=== PATIENT | male | born 1935 | race African-American/Black ===

== ENCOUNTER 2023-06-11 03:03 | Inpatient (IN) | payer OTHER ==
[~2023-06-11] VITALS: Ht 175.3 cm; Wt 89.3 kg
[2023-06-11] VITALS (8 sets, daily range): BP systolic 122–150; BP diastolic 69–85; PULSE 89–107; RESP 18–22; TEMP 97.6–98.5; O2SAT 95–98
[2023-06-11] MEDS ORDERED: HYDROcodone-ACET 5/325MG TAB PO PRN (03:15)
[2023-06-11] MEDS ORDERED: ACETAMINOPHEN 325 MG TAB PO PRN (03:15)
[2023-06-11] MEDS: FINASTERIDE 5 MG TAB PO SCH ×2 (03:45→10:00)
[2023-06-11] MEDS ORDERED: BRIM0.2S17 EACHEYE (04:12)
[2023-06-11] MEDS ORDERED: DORZ2SOL18 (04:12)
[2023-06-11] MEDS ORDERED: CLOP75TA70 PO (04:12)
[2023-06-11] MEDS ORDERED: SENN-177 PO (04:12)
[2023-06-11] MEDS ORDERED: TAMS0.4C36 PO (04:12)
[2023-06-11] MEDS ORDERED: DOCU-94 PO (04:12)
[2023-06-11] MEDS ORDERED: HYDR-4072 PO (04:12)
[2023-06-11] MEDS ORDERED: FUROSEMIDE 20 MG/2 ML VIAL IV SCH (06:00)
[2023-06-11 06:10] LABS: Basophils # (auto) 0 10 ^3/uL (0-0.2); Basophils % (auto) 0.1 % (0.0-2.0); Eosinophils # (auto) 0 10 ^3/uL (0-0.8); Hematocrit 46.9 % (41.0-53.0); Hemoglobin 15.6 g/dL (13.5-17.5); Lymphocytes # (auto) 0.2 10 ^3/uL (0.4-5.4); Lymphocytes % (auto) 1.1 % (10.0-50.0); Mean Corpuscular Hemoglobin 33.2 pg (28.0-32.0); Mean Corpuscular Hgb Conc. 33.3 g/dL (32.0-36.0); Mean Corpuscular Volume 99.6 fL (80.0-100.0); Monocytes # (auto) 2.2 10 ^3/uL (0-1.3); Monocytes % (auto) 14.7 % (0.0-12.0); Neutrophils # (auto) 12.7 10 ^3/uL (1.6-8.6); Neutrophils % (auto) 84.1 % (37.0-80.0); Nucleated Red Blood Cells % 0.1 %; Red Cell Distribution Width 13.4 % (11.8-14.3); White Blood Cell 15.1 10^3/uL (4.4-10.8)
[2023-06-11 06:22] LABS: Alkaline Phosphatase 68 U/L (46-116); Anion Gap 12 (5-15); Aspartate Aminotransferase 14 U/L (13-40); BUN/Creatinine Ratio 10.7 (10.0-20.0); Bilirubin, Total 0.8 mg/dL (0.2-1.0); Blood Urea Nitrogen 68 mg/dL (9-23); Calcium 8.3 mg/dL (8.7-10.4); Carbon Dioxide 25 mmol/L (20-30); Chloride 101 mmol/L (98-107); Glucose 102 mg/dL (74-106); Potassium 4.4 mmol/L (3.5-5.1); Sodium 138 mmol/L (136-145); Total Protein 6.8 g/dL (5.7-8.2)
[2023-06-11 06:34] LABS: Alanine Aminotransferase < 9 U/L (7-40)
[2023-06-11] MEDS ORDERED: LIDOCAINE 2% JELLY 11ml (GLYDO) UR ONE (08:00)
[2023-06-11] MEDS ORDERED: FUROSEMIDE 20 MG/2 ML VIAL ONE (08:17)
[2023-06-11] MEDS: SODIUM CHLOR 0.9% PF (SALINE LOCK) 10ML VIAL/SYR IV SCH ×3 (08:20→22:00)
[2023-06-11] MEDS ORDERED: LIDOCAINE 1% HCL (LOCAL ANESTH.) INJ 20ML MDV IJ ONE (09:45)
[2023-06-11 10:53] LABS: Urine Bacteria NONE SEEN /hpf (None Seen); Urine Blood 3+ /uL (Negative); Urine Clarity HAZY (Clear); Urine Color PINK (Yellow); Urine Protein, UAD 2+ (Negative); Urine Specific Gravity 1.017 (1.001-1.035); Urine Urobilinogen Normal (Negative); Urine WBC 57 /hpf (0 - 3); Urine pH 5.5 (5.0-8.0)
[2023-06-11] MEDS ORDERED: FINASTERIDE 5 MG TAB ONE (11:14)
[2023-06-11 15:42] LABS: Triglycerides 89 mg/dL (< 150)
[2023-06-11 15:43] LABS: LDL Cholesterol 73 mg/dL (< 100)
[2023-06-11 15:44] LABS: Cholesterol 155 mg/dL (< 200); HDL Cholesterol 61 mg/dL (40-59)
[2023-06-11] MEDS ORDERED: HYDROmorphone HCL 2 MG/ML VL/or syr ONE (16:53)
[2023-06-11] MEDS: HYDROmorphone HCL 2 MG/ML VL/or syr IV PRN (16:56)
[2023-06-11] MEDS: TAMSULOSIN HYDROCHLORIDE 0.4 MG CAP PO SCH (17:52)
[2023-06-11] MEDS ORDERED: FUROSEMIDE INJECTION 10 ML ONE (17:55)
[2023-06-11] MEDS: FUROSEMIDE 100 MG/10ML VIAL IV SCH (18:09)
[2023-06-11] MEDS ORDERED: MELATONIN 5 MG TAB PO PRN (20:30)
[2023-06-11] MEDS ORDERED: APIXABAN 5 MG TAB PO SCH ×3 (22:00)
[2023-06-12] VITALS (7 sets, daily range): BP systolic 111–150; BP diastolic 53–83; PULSE 92–104; RESP 18–23; TEMP 97.9–98.7; O2SAT 94–100
[2023-06-12] MEDS: SODIUM CHLOR 0.9% PF (SALINE LOCK) 10ML VIAL/SYR IV SCH ×3 (06:32→20:44)
[2023-06-12] MEDS: FUROSEMIDE 100 MG/10ML VIAL IV SCH ×2 (06:32→17:32)
[2023-06-12 06:38] LABS: Basophils # (auto) 0 10 ^3/uL (0-0.2); Basophils % (auto) 0.1 % (0.0-2.0); Eosinophils # (auto) 0 10 ^3/uL (0-0.8); Hematocrit 43.8 % (41.0-53.0); Hemoglobin 14.9 g/dL (13.5-17.5); Lymphocytes # (auto) 0.3 10 ^3/uL (0.4-5.4); Lymphocytes % (auto) 1.5 % (10.0-50.0); Mean Corpuscular Hemoglobin 33.3 pg (28.0-32.0); Mean Corpuscular Volume 97.9 fL (80.0-100.0); Monocytes # (auto) 2.7 10 ^3/uL (0-1.3); Monocytes % (auto) 14.5 % (0.0-12.0); Neutrophils # (auto) 15.5 10 ^3/uL (1.6-8.6); Neutrophils % (auto) 83.9 % (37.0-80.0); Nucleated Red Blood Cells % 0.1 %; Red Blood Cells 4.48 10^6/uL (4.5-5.90); Red Cell Distribution Width 13.4 % (11.8-14.3); White Blood Cell 18.5 10^3/uL (4.4-10.8)
[2023-06-12 06:49] LABS: Albumin 3.7 g/dL (3.2-4.8); Alkaline Phosphatase 65 U/L (46-116); Anion Gap 13 (5-15); Aspartate Aminotransferase 13 U/L (13-40); BUN/Creatinine Ratio 14.1 (10.0-20.0); Calcium 8.8 mg/dL (8.7-10.4); Carbon Dioxide 25 mmol/L (20-30); Chloride 104 mmol/L (98-107); Glucose 108 mg/dL (74-106); Sodium 142 mmol/L (136-145)
[2023-06-12 06:50] LABS: Total Protein 6.4 g/dL (5.7-8.2)
[2023-06-12 06:58] LABS: Alanine Aminotransferase < 9 U/L (7-40)
[2023-06-12 07:00] LABS: Blood Urea Nitrogen 87 mg/dL (9-23)
[2023-06-12] MEDS ORDERED: EMPAGLIFLOZIN 10 MG TAB PO SCH (07:00)
[2023-06-12] MEDS: HYDROmorphone HCL 2 MG/ML VL/or syr IV PRN ×2 (07:20→17:41)
[2023-06-12] MEDS: FINASTERIDE 5 MG TAB PO SCH (10:00)
[2023-06-12] MEDS ORDERED: TPN PER PHARMACY 0 ML IV SCH (14:45)
[2023-06-12] MEDS: TAMSULOSIN HYDROCHLORIDE 0.4 MG CAP PO SCH (17:36)
[2023-06-12] MEDS ORDERED: DEXTROSE (50%) 50ML SYRG IV SCH (20:00)
[2023-06-12] MEDS: AMINO ACID INFUSION IN D10W 1,000 ML IV NR (20:32)
[2023-06-12] MEDS: ATORVASTATIN 20 MG TAB PO SCH (22:00)
[2023-06-13] MEDS: ACCU-CHEK COMFORT CURVE STRIP VI SCH ×5 (00:47→23:01)
[2023-06-13] MEDS: InsuLIN REG 1unit/0.01ml Soln (100units/ml) SC SCH ×5 (00:56→23:03)
[2023-06-13] MEDS: HYDROmorphone HCL 2 MG/ML VL/or syr IV PRN ×2 (01:02→05:59)
[2023-06-13 05:00] VITALS: BP 114/69; PULSE 93; RESP 23; TEMP 98.1; O2SAT 98
[2023-06-13] MEDS: SODIUM CHLOR 0.9% PF (SALINE LOCK) 10ML VIAL/SYR IV SCH ×3 (05:38→21:16)
[2023-06-13] MEDS: FUROSEMIDE 100 MG/10ML VIAL IV SCH (05:48)
[2023-06-13 06:55] LABS: Albumin 3.6 g/dL (3.2-4.8); Alkaline Phosphatase 61 U/L (46-116); Anion Gap 7 (5-15); Aspartate Aminotransferase 11 U/L (13-40); BUN/Creatinine Ratio 23.7 (10.0-20.0); Bilirubin, Total 1.1 mg/dL (0.2-1.0); Calcium 8.9 mg/dL (8.7-10.4); Carbon Dioxide 32 mmol/L (20-30); Chloride 109 mmol/L (98-107); Glucose 144 mg/dL (74-106); Magnesium 2.6 mg/dL (1.6-2.6); Phosphorus 4.5 mg/dL (2.4-5.1); Potassium 3.4 mmol/L (3.5-5.1); Total Protein 6.2 g/dL (5.7-8.2)
[2023-06-13 07:04] LABS: Hematocrit 43.3 % (41.0-53.0); Hemoglobin 14.4 g/dL (13.5-17.5); Mean Corpuscular Hemoglobin 32.8 pg (28.0-32.0); Mean Corpuscular Hgb Conc. 33.3 g/dL (32.0-36.0); Mean Corpuscular Volume 98.5 fL (80.0-100.0); Red Blood Cells 4.39 10^6/uL (4.5-5.90); Red Cell Distribution Width 13.5 % (11.8-14.3); White Blood Cell 14.7 10^3/uL (4.4-10.8)
[2023-06-13 07:09] LABS: INR 1.31 (0.9-1.15); Prothrombin Time 13.5 sec (9.3-11.8)
[2023-06-13 07:21] LABS: Sodium 148 mmol/L (136-145)
[2023-06-13 07:22] LABS: Alanine Aminotransferase < 9 U/L (7-40); Blood Urea Nitrogen 93 mg/dL (9-23)
[2023-06-13 07:27] LABS: Basophils % (manual) 0 (0.0-2.0); Blast Cells 0; Eosinophils % (manual) 0 (0-7); Metamyelocytes % 0; Myelocytes % 0; Promyelocytes % 0; Reactive Lymphocytes 0
[2023-06-13 07:42] LABS: CRP High Sensitivity > 20.00 mg/dL (<1.0)
[2023-06-13 08:00] VITALS: BP 136/67; PULSE 92; PULSE 93; RESP 18; TEMP 97.7; O2SAT 97
[2023-06-13] MEDS ORDERED: POTASSIUM CHLORIDE 40 MEQ, LIDOCAINE 1% (LOCAL ANESTH.) 4 ML in SODIUM CHL 0.9% 250 ML IV ONE (08:00)
[2023-06-13 09:28] LABS: Band Neutrophils % (manual) 1; Lymphocytes % (manual) 6 (10.0-50.0); Monocytes % (manual) 19 (0-12); Platelet Estimate Adequate; RBC Morphology Normal
[2023-06-13] MEDS: FINASTERIDE 5 MG TAB PO SCH (10:56)
[2023-06-13] MEDS ORDERED: SOD CHL 0.45% 1,000 ML IV SCH (11:30)
[2023-06-13] MEDS: POTASSIUM CHL 20MEQ/100ML 100 ML IV SCH ×2 (11:45→13:45)
[2023-06-13 13:00] VITALS: BP 131/36; PULSE 99; RESP 20; TEMP 97.8; O2SAT 99
[2023-06-13] MEDS: SOD CHL 0.45% 1,000 ML IV SCH (13:27)
[2023-06-13 17:00] VITALS: BP 110/60; PULSE 89; RESP 18; TEMP 97.9; O2SAT 95
[2023-06-13] MEDS: TAMSULOSIN HYDROCHLORIDE 0.4 MG CAP PO SCH (18:15)
[2023-06-13 20:00] VITALS: PULSE 83; PULSE 85; RESP 19; O2SAT 98
[2023-06-13] MEDS: AMINO ACID INFUSION IN D10W 1,000 ML IV NR (21:13)
[2023-06-13] MEDS: ATORVASTATIN 20 MG TAB PO SCH (21:21)
[2023-06-13] MEDS: MELATONIN 5 MG TAB PO PRN (21:22)
[2023-06-13 22:00] VITALS: BP 118/53; PULSE 83; RESP 19; TEMP 97.9; O2SAT 98
[2023-06-13] MEDS: ONDANSETRON HCL 4 MG/2 ML VIAL IV PRN (22:51)
[2023-06-14] VITALS (7 sets, daily range): BP systolic 106–123; BP diastolic 48–64; PULSE 64–85; RESP 16–20; TEMP 97.6–98.2; O2SAT 97–99
[2023-06-14] MEDS: ONDANSETRON HCL 4 MG/2 ML VIAL IV PRN (03:04)
[2023-06-14] MEDS: SOD CHL 0.45% 1,000 ML IV SCH (05:14)
[2023-06-14] MEDS: SODIUM CHLOR 0.9% PF (SALINE LOCK) 10ML VIAL/SYR IV SCH ×3 (05:14→21:17)
[2023-06-14] MEDS: ACCU-CHEK COMFORT CURVE STRIP VI SCH ×4 (05:14→23:58)
[2023-06-14] MEDS: InsuLIN REG 1unit/0.01ml Soln (100units/ml) SC SCH ×4 (05:21→23:59)
[2023-06-14 06:52] LABS: Alkaline Phosphatase 55 U/L (46-116); Anion Gap 7 (5-15); BUN/Creatinine Ratio 36.9 (10.0-20.0); Calcium 8.6 mg/dL (8.7-10.4); Carbon Dioxide 34 mmol/L (20-30); Chloride 105 mmol/L (98-107); Glucose 128 mg/dL (74-106); Magnesium 2.3 mg/dL (1.6-2.6); Potassium 3.6 mmol/L (3.5-5.1); Sodium 146 mmol/L (136-145)
[2023-06-14 06:53] LABS: Albumin 3.5 g/dL (3.2-4.8); Aspartate Aminotransferase 14 U/L (13-40); Bilirubin, Total 1.2 mg/dL (0.2-1.0); Phosphorus 2.2 mg/dL (2.4-5.1); Total Protein 6.2 g/dL (5.7-8.2)
[2023-06-14 06:56] LABS: Alanine Aminotransferase < 9 U/L (7-40); Blood Urea Nitrogen 72 mg/dL (9-23)
[2023-06-14] MEDS: FUROSEMIDE 100 MG/10ML VIAL IV SCH (09:14)
[2023-06-14] MEDS: FINASTERIDE 5 MG TAB PO SCH (09:15)
[2023-06-14] MEDS ORDERED: POTASSIUM PHOSP 22MEQ(15MMOLE) in NS 100 ML IV ONE (11:15)
[2023-06-14] MEDS ORDERED: METOCLOPRAMIDE HCL 5MG/ml INJ 2ml VIAL IV PRN (14:45)
[2023-06-14] MEDS ORDERED: HYDROmorphone HCL 2 MG/ML VL/or syr IV PRN ×2 (14:45)
[2023-06-14] MEDS ORDERED: MORPHINE SULFATE INJ 2 MG/ml SYRG IV PRN (14:45)
[2023-06-14] MEDS ORDERED: ACCU-CHEK COMFORT CURVE STRIP VI ONE (14:45)
[2023-06-14] MEDS ORDERED: fentaNYL CITRATE 100 MCG/2 ML VL ONE (15:04)
[2023-06-14] MEDS ORDERED: ONDANSETRON HCL 4 MG/2 ML VIAL ONE (15:04)
[2023-06-14] MEDS ORDERED: MIDAZOLAM HCL 2MG/2ML 2ml VIAL (1mg/ml) ONE (15:04)
[2023-06-14] MEDS ORDERED: PROPOFOL 10 MG/ML 20 ML IV ONE (15:04)
[2023-06-14] MEDS ORDERED: SODIUM CHLORIDE LOCK 10 ML ONE (15:04)
[2023-06-14] MEDS ORDERED: KETAMINE 50mg/ML 1ml syringe IV ONE (15:11)
[2023-06-14] MEDS ORDERED: CIPROFLOXACIN 400MG/200ML 200 ML IV ONE (15:22)
[2023-06-14] MEDS ORDERED: DexAMETHasone SOD PHOS 10MG/1ML VIAL INJ ONE (15:50)
[2023-06-14] MEDS: TAMSULOSIN HYDROCHLORIDE 0.4 MG CAP PO SCH (18:00)
[2023-06-14] MEDS ORDERED: SOD CHL 0.45% 1,000 ML IV SCH (20:00)
[2023-06-14] MEDS ORDERED: PPN PER PHARMACY IV NR ×8 (20:00)
[2023-06-14] MEDS: MELATONIN 5 MG TAB PO PRN (21:13)
[2023-06-14] MEDS: ATORVASTATIN 20 MG TAB PO SCH (21:14)
[2023-06-15 05:00] VITALS: BP 124/59; PULSE 75; RESP 18; TEMP 98.3; O2SAT 96
[2023-06-15] MEDS: HYDROmorphone HCL 2 MG/ML VL/or syr IV PRN ×3 (05:11→13:02)
[2023-06-15] MEDS: ACCU-CHEK COMFORT CURVE STRIP VI SCH (05:31)
[2023-06-15] MEDS: SODIUM CHLOR 0.9% PF (SALINE LOCK) 10ML VIAL/SYR IV SCH (05:34)
[2023-06-15] MEDS: InsuLIN REG 1unit/0.01ml Soln (100units/ml) SC SCH (05:34)
[2023-06-15 07:16] LABS: Basophils # (auto) 0 10 ^3/uL (0-0.2); Eosinophils # (auto) 0 10 ^3/uL (0-0.8); Hematocrit 40.2 % (41.0-53.0); Hemoglobin 13.1 g/dL (13.5-17.5); Lymphocytes # (auto) 0.3 10 ^3/uL (0.4-5.4); Lymphocytes % (auto) 2.2 % (10.0-50.0); Mean Corpuscular Hemoglobin 32.6 pg (28.0-32.0); Mean Corpuscular Hgb Conc. 32.6 g/dL (32.0-36.0); Mean Corpuscular Volume 100.1 fL (80.0-100.0); Monocytes # (auto) 1.2 10 ^3/uL (0-1.3); Monocytes % (auto) 7.7 % (0.0-12.0); Neutrophils # (auto) 13.9 10 ^3/uL (1.6-8.6); Neutrophils % (auto) 90.1 % (37.0-80.0); Nucleated Red Blood Cells % 0.1 %; Red Blood Cells 4.01 10^6/uL (4.5-5.90); Red Cell Distribution Width 13.3 % (11.8-14.3); White Blood Cell 15.4 10^3/uL (4.4-10.8)
[2023-06-15 07:38] LABS: Alanine Aminotransferase 13 U/L (7-40); Albumin 3.5 g/dL (3.2-4.8); Alkaline Phosphatase 52 U/L (46-116); Anion Gap 3 (5-15); Aspartate Aminotransferase 17 U/L (13-40); BUN/Creatinine Ratio 40.3 (10.0-20.0); Bilirubin, Total 1.3 mg/dL (0.2-1.0); Calcium 8.6 mg/dL (8.7-10.4); Carbon Dioxide 35 mmol/L (20-30); Chloride 108 mmol/L (98-107); Glucose 190 mg/dL (74-106); Magnesium 2.1 mg/dL (1.6-2.6); Phosphorus 2.7 mg/dL (2.4-5.1); Sodium 146 mmol/L (136-145); Total Protein 6.3 g/dL (5.7-8.2)
[2023-06-15 07:48] LABS: Blood Urea Nitrogen 54 mg/dL (9-23)
[2023-06-15 08:10] VITALS: O2SAT 95
[2023-06-15 09:00] VITALS: BP 140/67; PULSE 70; RESP 18; TEMP 97.6; O2SAT 94
[2023-06-15] MEDS: ONDANSETRON HCL 4 MG/2 ML VIAL IV PRN ×2 (09:05→13:02)
[2023-06-15] MEDS: FUROSEMIDE 100 MG/10ML VIAL IV SCH (09:06)
[2023-06-15] MEDS: FINASTERIDE 5 MG TAB PO SCH (09:08)
[2023-06-15] MEDS ORDERED: ATOR20TA50 PO (12:18)
[2023-06-15] MEDS ORDERED: FIN5T PO (12:18)
[2023-06-15 13:00] VITALS: BP 124/43; PULSE 62; RESP 14; TEMP 97.9; O2SAT 92
[2023-06-15 13:02] VITALS: BP 132/72; PULSE 70; RESP 16
[2023-06-15] MEDS ORDERED: FURO40TA4 PO (14:14)
[2023-06-15] MEDS ORDERED: POTA10TA51 PO (14:15)
[2023-06-15] MEDS ORDERED: PPN PER PHARMACY IV NR ×10 (20:00)
== END 2023-06-15 16:00 | disposition hospice, home (50) | DRG 682 ==
LOC: TELE-CENTR 03:04
PROVIDERS: ADMIT Internal Medicine; ATTEND Student in an Organized Health Care Education/Training Program
PROC: 0T9B40Z Drainage of Bladder with Drainage Device, Percutaneous Endoscopic Approach (ICD-10-PCS; 2023-06-11)
PROC: 0TPB80Z Removal of Drainage Device from Bladder, Via Natural or Artificial Opening Endoscopic (ICD-10-PCS; 2023-06-14)
PROC: 0T7D8ZZ Dilation of Urethra, Via Natural or Artificial Opening Endoscopic (ICD-10-PCS; principal; 2023-06-14 15:28)
DX: N17.0 Acute kidney failure with tubular necrosis (principal); I50.43 Acute on chronic combined systolic (congestive) and diastolic (congestive) heart failure; J96.21 Acute and chronic respiratory failure with hypoxia; D68.69 Other thrombophilia; E87.0 Hyperosmolality and hypernatremia; I13.0 Hypertensive heart and chronic kidney disease with heart failure and stage 1 through stage 4 chronic kidney disease, or unspecified chronic kidney disease; N13.8 Other obstructive and reflux uropathy; I82.402 Acute embolism and thrombosis of unspecified deep veins of left lower extremity; N40.1 Benign prostatic hyperplasia with lower urinary tract symptoms; R31.9 Hematuria, unspecified; N36.5 Urethral false passage; E87.6 Hypokalemia; I50.84 End stage heart failure; N18.9 Chronic kidney disease, unspecified; N32.89 Other specified disorders of bladder; E78.5 Hyperlipidemia, unspecified; Z86.718 Personal history of other venous thrombosis and embolism; Z86.73 Personal history of transient ischemic attack (TIA), and cerebral infarction without residual deficits; Z79.02 Long term (current) use of antithrombotics/antiplatelets; Z95.0 Presence of cardiac pacemaker; Z80.9 Family history of malignant neoplasm, unspecified
CPT/HCPCS: 36415; 71045; 74018; 76775; 80053; 80061; 81001; 82306; 82962; 83605; 83735; 83880; 84100; 84154; 84443; 85007; 85025; 85027; 85610; 86141; 86850; 86900; 86901; 87086; 93005; 93306; G0378; J1100; J1815; J2001; J2250; J2405; J2704

== ENCOUNTER 2023-07-21 12:10 | Emergency (ER) | payer OTHER ==
[~2023-07-21] VITALS: Ht 172.7 cm; Wt 86.3 kg
[~2023-07-21 12:10] MED LIST: ATOR20TA50 PO; BRIM0.2S17 EACHEYE; CLOP75TA70 PO; DOCU-94 PO; DORZ2SOL18; FIN5T PO; FURO40TA4 PO; HYDR-4072 PO; POTA10TA51 PO; SENN-177 PO; TAMS0.4C36 PO
[2023-07-21 13:01] VITALS: BP 132/50; PULSE 96; RESP 18; TEMP 98.7; O2SAT 98
[2023-07-21 13:30] LABS: Urine Epithelial Cast None Seen /hpf (<5)
[2023-07-21 13:43] LABS: Urine Bacteria FEW /hpf (None Seen); Urine Blood TRACE /uL (Negative); Urine Clarity HAZY (Clear); Urine Color Yellow (Yellow); Urine Mucus FEW (None Seen); Urine Protein, UAD 1+ (Negative); Urine Specific Gravity 1.014 (1.001-1.035); Urine Urobilinogen Normal (Negative); Urine WBC 24 /hpf (0 - 3)
[2023-07-21] MEDS ORDERED: LIDOCAINE 2% JELLY 11ml (GLYDO) UR ONE (15:15)
[2023-07-21] MEDS ORDERED: AUG875T PO (16:28)
== END 2023-07-21 16:39 | disposition home or self-care (01) ==
LOC: ER 12:10
DX: N39.0 Urinary tract infection, site not specified (principal); I10 Essential (primary) hypertension; Z46.6 Encounter for fitting and adjustment of urinary device; Z79.899 Other long term (current) drug therapy
CPT/HCPCS: 51702; 81001